=== PATIENT | male | born 1960 | race Caucasian/White ===

== ENCOUNTER 2020-07-04 06:30 | Day surgery (SDC) | payer BC ==
[~2020-07-04] VITALS: Ht 177.8 cm; Wt 129.3 kg
[2020-07-04] VITALS (9 sets, daily range): BP systolic 139–152; BP diastolic 77–90
[2020-07-04] MEDS ORDERED: fentaNYL 100 mcg/2 mL IV ONE (07:28)
[2020-07-04] MEDS ORDERED: Midazolam 2mg/2ml Inj ONE (07:28)
--- NOTE | 2020-07-04 07:54 | Anethesia Preoperative Eval ---
Anesthesia Pre-op PMH/ROS General Date of Evaluation: Jul 04, 2020 Time of Evaluation: 07:51 Anesthesiologist: Alexx ASA Score: ASA 2 Mallampati Score Class I : Soft palate, uvula, fauces, pillars visible Class II: Soft palate, uvula, fauces visible Class III: Soft palate, base of uvula visible Class IV: Only hard plate visible Mallampati Classification: Class III Surgeon: Joss Diagnosis: Colon CA screening Surgical Procedure: Colonoscopy Anesthesia History: none Family History: no anesthesia problems Allergies: Coded Allergies: No Known Allergies (Unverified , 07/04/20) Medications: see eMAR Patient NPO?: Yes Past Medical History Cardiovascular: Reports: HTN - borderline; Denies: CAD, RI, valve dz, arrhythmia, other Pulmonary: Reports: SHANKAR - possible; Denies: asthma, COPD, other Gastrointestinal/Genitourinary: Reports: GERD; Denies: CRI, ESRD, other Neurologic/Psychiatric: Denies: dementia, CVA, depression/anxiety, TIA, other Endocrine: Denies: DM, hypothyroidism, steroids, other HEENT: Denies: cataract (L), cataract (R), glaucoma, [place] (L), [place] (R), other Hematology/Immune: Denies: anemia, DVT, bleeding disorder, other Musculoskeletal/Integumentary: Denies: OA, RA, DJD, DDD, edema, other Other: obesity - morbid obesity PMH Narrative: as above PSxH Narrative: See H&P Anesthesia Pre-op Phys. Exam Physician Exam Last Vital Signs Date Time Temp Pulse Resp B/P (MAP) Pulse Ox O2 Delivery O2 Flow Rate FiO2 07/04/20 07:17 Room Air 07/04/20 07:12 97.0 54 18 147/83 97 Constitutional: NAD Neurologic: CN 2-12 intact Cardiovascular: RRR, no M/R/G Respiratory: CTA Gastrointestinal: other - obesity Airway Exam Mallampati Score: Class III MO: limited Neck: short ROM: limited Teeth: intact Dentures: no upper, no lower Anesthesia Pre-op A/P Studies Pre-op Studies: EKG - SR Risk Assessment & Plan Assessment: ASA 2 Plan: Jamey Martinez MD Jul 04, 2020 07:54
[2020-07-04] MEDS ORDERED: LR 1000ml ONE (08:00)
[2020-07-04] MEDS ORDERED: LR 1000ml 1,000 ML IVLG SCH (08:00)
[2020-07-04] MEDS ORDERED: fentaNYL 100 mcg/2 mL IV PRN (08:00)
--- NOTE | 2020-07-04 08:02 | Short Stay Surgery H&P ---
History of Present Illness History of Present Illness Chief Complaint see typed H&P HPI Yvon Mendoza is a 59 year old male who was admitted on for Colon Screening Patient History Allergies: Coded Allergies: No Known Allergies (Unverified , 07/04/20) Medication History No Active Prescriptions or Reported Meds Physical Exam Vital Signs Last Vital Signs Date Time Temp Pulse Resp B/P (MAP) Pulse Ox O2 Delivery O2 Flow Rate FiO2 07/04/20 07:17 Room Air 07/04/20 07:12 97.0 54 18 147/83 97 Plan Attestation Are the patient's medical conditions optimized for surgery? Camryn Doty MD Jul 04, 2020 08:02
--- NOTE | 2020-07-04 08:03 | Pre-Procedure Note/Attestation ---
Pre-Procedure Note/Attestation Complete Prior to Procedure Planned Procedure: not applicable Procedure Narrative: colonoscopy Indications for Procedure Pre-Operative Diagnosis: screening Attestation I attest that I discussed the nature of the procedure; its benefits; risks and complications; and alternatives (and the risks and benefits of such alternatives), prior to the procedure, with the patient (or the patient's legal advertising representative). I attest that, if there was a reasonable possibility of needing a blood tra nsfusion, the patient (or the patient's legal advertising representative) was given the [facility] standardized written summary, pursuant to the [place] Blood Safety Act ([place] Health and Safety Code # 1645, as amended). I attest that I re-evaluated the patient just prior to the surgery and that there has been no change in the patient's H&P, except as documented below: Camryn Doty MD Jul 04, 2020 08:03
--- NOTE | 2020-07-04 08:30 | Immediate Post-Op Evaluation ---
Immediate Post-Op Evalulation Immediate Post-Op Evalulation Procedure: Colonoscopy Date of Evaluation: Jul 04, 2020 Time of Evaluation: 08:29 IV Fluids: 600 Blood Products: none Estimated Blood Loss: none Urinary Output: none Blood Pressure Systolic: 140 Blood Pressure Diastolic: 81 Pulse Rate: 62 Respiratory Rate: 20 O2 Sat by Pulse Oximetry: 99 Temperature (Fahrenheit): 97.6 Pain Score (1-10): 1 Nausea: No Vomiting: No Complications none Patient Status: awake, patent, none Hydration Status: adequate Jamey Coffey MD Jul 04, 2020 08:30
--- NOTE | 2020-07-04 08:30 | Brief Operative Note ---
Immediate Post Operative Note Operative Note Chief Complaint: Screen Pre-op Diagnosis: screening Specimen: yes Complications: none Condition: stable Fluids: Per anesthesia Implant(s) used?: No Camryn Doty MD Jul 04, 2020 08:30
--- NOTE | 2020-07-04 08:30 | Endoscopy Procedure Note ---
Endoscopy Procedure Note General Indication for Procedure: screen Procedures Performed: colonoscopy Anesthesia Anesthesiologist: Eliana Anesthesia: MAC Inserted Devices Implant(s) used?: No GI Core Measures 50 yrs or older w/o bx or poly: No 10yrs. F/U recommended: No If not recommended, why?: Above average risk 18 years or older w/prev. colo: No <3yrs. since last colonoscopy: No Med reason:<3 yrs.: System Reason:<3 yrs.: Last colonoscopy >= to 3yrs: Yes Camryn Doty MD Jul 04, 2020 08:30
--- NOTE | 2020-07-04 10:10 | 48 Hour Post Anesthesia Eval ---
Post Anesthesia Evaluation Procedure: Colonoscopy Date of Evaluation: Jul 04, 2020 Time of Evaluation: 10:08 Blood Pressure Systolic: 148 0: 78 Pulse Rate: 82 Respiratory Rate: 18 Temperature (Fahrenheit): 97.6 O2 Sat by Pulse Oximetry: 98 Airway: patent Nausea: No Vomiting: No Pain Intensity: 1 Hydration Status: adequate Cardiopulmonary Status: stable Mental Status/LOC: patient returned to baseline Follow-up Care/Observations: n/a Post-Anesthesia Complications: none Follow-up care needed: ready to discharge Jamey Coffey MD Jul 04, 2020 10:10
--- NOTE | 2020-07-04 14:14 | Operative Note - Dictated ---
DATE OF OPERATION: 07/04/2020 GASTROENTEROLOGY PROCEDURE REPORT PROCEDURE: Colonoscopy with biopsy. SURGEON: Camryn Doty MD. ANESTHESIA: Please see the separate anesthesiologist notes. PRE-ENDOSCOPIC DIAGNOSIS: Screening colonoscopy. POST-ENDOSCOPIC DIAGNOSES: 1. Normal terminal ileum for about 5 to 10 cm. 2. Diminutive cecum polyp, status post biopsy removal. 3. Mild left-sided diverticulosis. 4. Mild internal and external hemorrhoids. DESCRIPTION OF PROCEDURE: The procedure, its risks, indications, alternatives, and possible complications including but not limited to bleeding, infection, perforation risk, and risk of anesthesia were explained to the patient and informed consent was obtained. The patient was then sedated in the left lateral decubitus position and a rectal exam was done. External hemorrhoids were visible. The colonoscope was introduced into the rectum and advanced to 10 cm into the terminal ileum. The colonoscope was then gradually withdrawn and mucosa examined carefully. Examination of the terminal ileal mucosa did not reveal any abnormalities. There was a diminutive 3 to 4 mm polyp in the cecum, which was removed with biopsy forceps. There was mild left-sided diverticulosis and internal hemorrhoids were visible on retroflexed view of the rectum. The colonoscope was removed and the patient was sent to recovery in good condition. COMPLICATIONS: None. RECOMMENDATIONS: 1. High fiber diet. 2. Follow up biopsy results. 3. Outpatient followup. Thank you for asking me to participate in the care of this patient. Camryn Doty M.D. DR: NITA JOB#: [id number] CC: Prasad Mcgill M.D.; Fax#: [phone]
== END 2020-07-04 09:35 | disposition home or self-care (01) ==
LOC: GAS 06:30
DX: Z12.11 Encounter for screening for malignant neoplasm of colon (principal); K63.5 Polyp of colon; K57.90 Diverticulosis of intestine, part unspecified, without perforation or abscess without bleeding; K64.4 Residual hemorrhoidal skin tags; K64.8 Other hemorrhoids; I10 Essential (primary) hypertension; K21.9 Gastro-esophageal reflux disease without esophagitis; E66.01 Morbid (severe) obesity due to excess calories; Z68.41 Body mass index [BMI] 40.0-44.9, adult
CPT/HCPCS: 45380; 94003; J2250; J2704; J3010; J7120; 94150